=== PATIENT | female | born 1960 | race Caucasian/White ===

== ENCOUNTER 2019-01-28 00:30 | Emergency (ER) | payer MEDICAID ==
[~2019-01-28] VITALS: Ht 157.5 cm; Wt 81.6 kg
[2019-01-28 00:43] VITALS: BP 149/73
--- NOTE | 2019-01-28 00:43 | NUR ---
PT AMBULATED TO ER BED 11
--- NOTE | 2019-01-28 01:45 | NUR ---
REFERENCE CHART FOR PT ASSESSMENT
--- NOTE | 2019-01-28 02:33 | NUR ---
XRAY AT BEDSIDE
[2019-01-28 02:50] VITALS: BP 141/61
--- NOTE | 2019-01-28 02:50 | NUR ---
PT DISCHARGED WITH PAPERWORK. RX ALBUTEROL AND PROMETHAZINE. EDUCATED PT REGARDING MEDICATIONS AND S/E. EDUCATED PT REGARDING D/C DIAGNOSIS AND INSTRUCTIONS. PT VERBALIZED UNDERSTANDING OF TEACHING. TOLD PT TO FOLLOW UP WITH PCP AND WHEN TO RETURN TO ED. PT STABLE CONDITION, DENIES ANY SOB/RESPIRATORY DISCOMFORT. ALL QUESTIONS ANSWERED.
== END 2019-01-28 02:50 | disposition home or self-care (01) ==
LOC: MED 00:30
DX: J40 Bronchitis, not specified as acute or chronic (principal)
CPT/HCPCS: 71045; 99283; Q0092

== ENCOUNTER 2019-03-27 18:28 | Emergency (ER) | payer MEDICAID ==
[~2019-03-27] VITALS: Ht 157.5 cm; Wt 77.1 kg
[2019-03-27 18:47] VITALS: BP 167/74
--- NOTE | 2019-03-27 18:53 | NUR ---
PT AMBULATED TO BED 09.
--- NOTE | 2019-03-27 19:30 | NUR ---
Pt states having a mechanical fall on thursday. pt c/o left shoulder pain and left side back pain. Pt denies LOC, Pt denies head or neck pain. Pt taking 81mg of ASA. Pt appears to be in no distress. VSS. Pt has full ROM of upper extremities. Denies numbness or tingling to upper extremities. DENIES N/V/D; SKIN IS PINK/WARM/DRY; AAOX4 WITH EVEN AND STEADY GAIT; LUNGS CLEAR BL; HR EVEN AND REGULAR; PT DENIES ANY FEVER, CP, SOB, OR COUGH AT THIS TIME; PATIENT STATES PAIN OF 7/10 AT THIS TIME; VSS; PATIENT POSITIONED FOR COMFORT; HOB ELEVATED; BEDRAILS UP X1; BED DOWN. ER MD MADE AWARE OF PT STATUS.
--- NOTE | 2019-03-27 21:13 | NUR ---
PT TAKEN TO CT VIA W/C
--- NOTE | 2019-03-27 21:23 | NUR ---
PT BACK FROM CT
--- NOTE | 2019-03-27 21:30 | NUR ---
PT AMBULATORY TO REST ROOM WITH NO ASSISTANCE.
--- NOTE | 2019-03-27 21:30 | NUR ---
NO CHANGES FROM PREVIOUS ASSESSMENT. PT VSS. WAITING ON CT RESULTS. WILL CONTINUE TO MONITOR.
[2019-03-27 23:24] VITALS: BP 118/72
--- NOTE | 2019-03-27 23:25 | NUR ---
PT APPEARS TO BE IN NO DISTRESS. DR. ROWE [place] PATIENT. Patient discharged with v/s stable. Written and verbal after care instructions given and explained. Patient alert, oriented and verbalized understanding of instructions. Ambulatory with steady gait. All questions addressed prior to discharge. ID band removed. Patient advised to follow up with PMD. Rx of NAPROSYN given. Patient educated on indication of medication including possible reaction and side effects. Opportunity to ask questions provided and answered.
== END 2019-03-27 23:24 | disposition home or self-care (01) ==
LOC: MED 18:28
DX: S20.02XA Contusion of left breast, initial encounter (principal); S83.91XA Sprain of unspecified site of right knee, initial encounter; E11.9 Type 2 diabetes mellitus without complications; I10 Essential (primary) hypertension; W19.XXXA Unspecified fall, initial encounter; Y93.89 Activity, other specified; Y92.89 Other specified places as the place of occurrence of the external cause; Y99.8 Other external cause status
CPT/HCPCS: 71250; 73560; 99284; Q0092